=== PATIENT | female | born 1950 | race Caucasian/White ===

== ENCOUNTER 2018-10-24 10:27 | Day surgery (SDC) | payer MEDICARE, OTHER ==
[~2018-10-24 10:27] MED LIST: ACETAMINOPHEN 1,000 MG/100 ML BTL IV ONE; CEFAZOLIN 2 Gram 2 GM/50 ML BAG IVPB ONE
[2018-10-24] MEDS ORDERED: MIDAZOLAM HCL 2MG/2ML VIAL IV ONE (10:28)
[2018-10-24] MEDS ORDERED: LIDOCAINE 1% W/EPI 1:200,000 MPF 30ML SQ ONE (10:28)
[2018-10-24] MEDS ORDERED: FENTANYL PF 100MCG/2ML VIAL IV ONE (10:28)
[2018-10-24] MEDS ORDERED: LIDOCAINE 2% MDV (20MG/ML) 20ML VIAL IV ONE (10:28)
[2018-10-24] MEDS ORDERED: PROPOFOL 10 MG/ML VIAL IV ONE (10:28)
[2018-10-24] MEDS ORDERED: BUPIVACAINE 0.5% W/EPI MPF 30 ML VIAL IVP ONE ×2 (10:28)
--- NOTE | 2018-10-25 09:10 | Operative Note ---
DATE OF SURGERY: 10/24/2018 PREOPERATIVE DIAGNOSIS: Benign soft tissue neoplasm, right shoulder. POSTOPERATIVE DIAGNOSIS: Benign lipoma, right shoulder. OPERATION: Excisional biopsy of benign soft tissue neoplasm, right shoulder. Staff Surgeon: Charly Robbins MD Anesthesia: Local with sedation. Preparation: Chloraprep. Individual Considerations: None. PROCEDURE: The patient was taken to the operating room and placed supine on the operating room table. She was placed in a slight semi-seated position. Her right anterior shoulder area was prepped and draped in the usual fashion. The patient had an oblique incision directly over the lipoma which was just basically over the deltopectoral interval. There was a 50/50 mixture of 1% lidocaine with epinephrine and 0.5% Marcaine with epinephrine. Sharp dissection carried down just through the skin. Once through the skin, there was an obviously well encapsulated lipoma which was basically dissected out with finger dissection. There was a vascular pedicle which was amputated with a Bovie, and a well-encapsulated specimen was sent for specimen. After irrigation, I just closed the skin with running Stratafix, and a dressing was applied. She was taken back to recovery in good condition. There were no complications. MAGDIEL
== END 2018-10-24 12:50 | disposition home or self-care (01) ==
LOC: SUR 10:27
PROVIDERS: ATTEND Orthopaedic Surgery
DX: D17.1 Benign lipomatous neoplasm of skin and subcutaneous tissue of trunk (principal); M19.90 Unspecified osteoarthritis, unspecified site
CPT/HCPCS: 23065; 00400; 88304; J3010; J0690